=== PATIENT | male | born 1990 | race African-American/Black ===

== ENCOUNTER 2021-10-23 23:01 | Emergency (ER) | payer MEDICAID, SELFPAY ==
[2021-10-23 23:05] VITALS: BP 178/95; PULSE 92; RESP 18; TEMP 37.1; O2SAT 99
--- NOTE | 2021-10-23 23:13 | ECG_ITS ---
Measurements Intervals [place] Rate: 100 P: 65 UT: 140 QRS: 13 QRSD: 103 T: 71 QT: 329 QTc: 426 Interpretive Statements SINUS TACHYCARDIA INCOMPLETE RIGHT BUNDLE BRANCH BLOCK [90+ ms QRS DURATION, TERMINAL R IN V1/V2, 40+ ms S IN I/aVL/V4/V5/V6] NONSPECIFIC T-WAVE ABNORMALITY BORDERLINE ECG NO PREVIOUS ECG AVAILABLE FOR COMPARISON Electronically Signed On 10-24-2021 17:51:03 CDT by Quinton Snyder M.D.
--- NOTE | 2021-10-23 23:14 | ED.OVERDOSE ---
HPI - Overdose General Chief Complaint: Overdose <Henri Esquivel APRN - Last Filed: 10/24/21 00:41> Stated Complaint: itching <Henri Esquivel APRN - Last Filed: 10/24/21 00:41> Time Seen by Provider: 10/23/21 23:03 <Henri Esquivel APRN - Last Filed: 10/24/21 00:41> History of Present Illness HPI Narrative: 31-year-old male presented to the emergency room for evaluation of altered mental status. Patient was stopped by local PD was found to be altered while at local care home. When EMS was on scene, blood sugar was found to be 103. Patient was given a IM injection of Benadryl due to excessive itching of his face and legs. <Henri Esquivel APRN - Last Filed: 10/24/21 00:41> Related Data Allergies/Adverse Reactions: Allergies Allergy/AdvReac Type Severity Reaction Status Date / Time No Known Allergies Allergy Verified 10/24/21 01:15 <Henri Esquivel APRN - Last Filed: 10/24/21 00:41> Review of Systems Review of Systems: ROS unobtainable: Yes unobtainable due to mental status <Henri Esquivel APRN - Last Filed: 10/24/21 00:41> Exam Narrative: GENERAL: Well-appearing, well-nourished, and in no acute distress. HEAD: Normocephalic, atraumatic. EYES: Pinpoint pupils CHEST: Clear to auscultation. Snoring respirations. No wheezes rales or rhonchi HEART: Regular rate and rhythm. No murmur heard. Normal peripheral pulses. ABDOMEN: Soft, nontender, nondistended, normal active bowel sounds. EXTREMITIES: Normal range of motion. No edema. SKIN: Warm, dry, no rash. NEURO: Unresponsive PSYCH: Unresponsive <Henri Esquivel APRN - Last Filed: 10/24/21 00:41> Course Course Emergency Course: 0030: Patient responsive following administration of Narcan. 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 Patient states that he was sitting in the back of a car drinking alcohol. Has no recollection of doing any illicit drugs. <Henri Esquivel, BATCH OR CONTINUOUS STILL OPERATOR - Last Filed: 10/24/21 00:41> NUCLEAR LOGGING ENGINEER/PA Physician Supervision For this patient encounter, I reviewed the NUCLEAR LOGGING ENGINEER or PA documentation, treatment plan, and medical decision making; and I had [id number] time with this patient. Patient is still somnolent but he is more alert and appropriate. Patient has been maintaining his airway and has not needed Narcan for greater than 5 hours. Patient states he has a mild headache but declined any medications for this. Patient states he is fine and prefers to go home. We are attempting to contact his family members for a ride. Transportation is still pending at time of signout. <Fred Duran MD - Last Filed: 10/26/21 07:05> Vital Signs Vital signs: Vital Signs Temperature 98.7 F 10/23/21 23:05 Pulse Rate 92 10/23/21 23:05 Respiratory Rate 18 10/23/21 23:05 Blood Pressure 178/95 H 10/23/21 23:05 Pulse Oximetry 99 10/23/21 23:05 Temperature 98.7 F 10/23/21 23:05 Pulse Rate 87 10/24/21 08:50 Respiratory Rate 17 10/24/21 08:50 Blood Pressure 189/99 H 10/24/21 08:50 Pulse Oximetry 97 10/24/21 08:50 <Henri Esquivel, BATCH OR CONTINUOUS STILL OPERATOR - Last Filed: 10/24/21 00:41> Vital Signs Temperature 98.7 F 10/23/21 23:05 Pulse Rate 92 10/23/21 23:05 Respiratory Rate 18 10/23/21 23:05 Blood Pressure 178/95 H 10/23/21 23:05 Pulse Oximetry 99 10/23/21 23:05 Temperature 98.7 F 10/23/21 23:05 Pulse Rate 87 10/24/21 08:50 Respiratory Rate 17 10/24/21 08:50 Blood Pressure 189/99 H 10/24/21 08:50 Pulse Oximetry 97 10/24/21 08:50 <Fred Duran MD - Last Filed: 10/26/21 07:05> MDM - Overdose Lab Data Attestation: I reviewed the patient's lab results. <Fred Duran MD - Last Filed: 10/26/21 07:05> Result diagrams: : 10/24/21 00:32 10/24/21 00:32 <Henri Esquivel APRN - Last Filed: 10/24/21 00:41> Labs: Lab Results
[2021-10-24] MEDS: SODIUM CHLORIDE 0.9% IV 1,000 ML 999 ML IV CONT (00:30)
[2021-10-24] MEDS: NALOXONE HCL 0.4 MG/ML VIAL IV PUSH (00:30)
[2021-10-24 00:36] LABS: Appearance Urine Clear (Clear); Bilirubin Urine Negative (Negative); Blood Urine Negative (Negative); Color Urine Yellow (Yellow); Glucose Urine UA Negative (Negative); Ketones Urine Negative (Negative); Leukocyte Esterase Ur Negative LEU/UL (Negative); Nitrate Urine Negative (Negative); Protein Urine 1+ mg/dL (Negative); Specific Grav Ur 1.025 (1.001-1.035); Urobilinogen Urine 0.2 mg/dL (<2.0); pH Urine 5.5 (5.0-9.0)
[2021-10-24 00:43] LABS: Mucus Urine Rare /lpf; WBC Urine 0-3 /hpf
[2021-10-24 00:45] LABS: Basophils Percent Auto 0.4 % (0.2-1.2); Eosinophils Percent Auto 0.1 % (0-4.4); Hematocrit 43.3 % (42.0-52.0); Hemoglobin 13.9 g/dL (14.0-18.0); Immature Granulocyte Absolute 0.04 K/mm3 (0.00-0.031); Immature Granulocyte Percent A 0.4 % (0-0.5); Lymphocytes Absolute Auto 1.08 K/mm3 (0.9-3.2); Lymphocytes Percent Auto 11.2 % (18.3-44.2); Mean Corpuscular HGB Conc 32.1 g/dl (32-36); Mean Corpuscular Hemoglobin 29.8 pg (26-34); Mean Corpuscular Volume 92.9 fl (80-100); Mean Platelet Volume 11.3 fl (7.4-10.4); Monocytes Absolute Auto 1.2 K/mm3 (0.1-0.6); Monocytes Percent Auto 12.8 % (2.6-8.5); Neutrophils Absolute Auto 7.2 K/mm3 (1.3-6.7); Neutrophils Percent Auto 75.1 % (45.5-73.1); Platelet Count Result 263 k/mm3 (150-375); Red Blood Count 4.66 M/mm3 (4.6-6.20); Red Cell Distribution Width 14.9 % (11.5-14.5); White Blood Count 9.6 K/mm3 (4.5-10.0)
[2021-10-24 00:51] LABS: Add Urine Microscopic? YES; Amphetamine Screen Urine Negative (Negative); Barbiturate Screen Urine Negative (Negative); Benzodiazepines Screen Urine Negative (Negative); Cannabinoid Screen Urine Negative (Negative); Cocaine Screen Urine Negative (Negative); Methadone Screen Urine Negative (Negative); Opiate Screen Urine Negative (Negative); Phencyclidine Screen Urine Negative (Negative)
[2021-10-24 00:59] LABS: Acetaminophen < 10 ug/mL (10-30); Ethanol 21 mg/dL (<10); Salicylate < 1.0 mg/dL (2-20)
[2021-10-24 01:04] LABS: Alanine Aminotransferase 37 U/L (4-50); Albumin Level 4.5 g/dL (3.5-5.1); Alkaline Phosphatase 80 U/L (38-126); Anion Gap 7 mmol/L (8-16); Aspartate Amino Transferase 48 U/L (17-59); Bilirubin,Total 0.2 mg/dL (0.2-1.3); Blood Urea Nitrogen 18 mg/dL (9-20); Calcium 8.3 mg/dL (8.4-10.2); Carbon Dioxide 29 mmol/L (22-30); Chloride 102 mmol/L (98-107); Estimated CRCL calculation 105 ml/min; Estimated Glomerular Filt Rate > 60; Glucose 96 mg/dL (65-110); Potassium 4.3 mmol/L (3.4-5.0); Sodium 138 mmol/L (137-145)
[2021-10-24] MEDS: hydrALAZINE HCL 20 MG/ML VIAL 10 MG IV PUSH ×2 (01:14→03:06)
[2021-10-24 01:15] VITALS: BP 182/110; PULSE 84; RESP 20; O2SAT 100
[2021-10-24] MEDS: NALOXONE HCL 0.4 MG/ML VIAL 0.8 MG IV PUSH (02:00)
[2021-10-24 04:36] VITALS: BP 166/96; PULSE 88; RESP 16; O2SAT 93
[2021-10-24 05:58] VITALS: BP 172/91; PULSE 106; RESP 20; O2SAT 94
[2021-10-24 06:44] LABS: Glucose Point of Care 79 mg/dl (65-105)
--- NOTE | 2021-10-24 07:48 | PC.NURSE ---
called pt's brother at [phone] for a ride home. number is discontinued.
--- NOTE | 2021-10-24 07:59 | PC.NURSE ---
pt now stating brother's number is [phone]. no answer. mailbox full so was unable to leave a voicemail.
[2021-10-24 08:50] VITALS: BP 189/99; PULSE 87; RESP 17; O2SAT 97
== END 2021-10-24 08:52 | disposition home or self-care (01) ==
PROVIDERS: Emergency Provider Nurse Practitioner Family
DX: T50.901A Poisoning by unspecified drugs, medicaments and biological substances, accidental (unintentional), initial encounter (principal); R00.0 Tachycardia, unspecified; I45.10 Unspecified right bundle-branch block
CPT/HCPCS: 36415; 80053; 80307; 81001; 82948; 85025; 93005; 96361; 96374; 96375; 96376; 99284; J0360; J2310; J7030